=== PATIENT | female | born 1995 | race Two or more races ===

== ENCOUNTER 2020-05-30 21:30 | Emergency (ER) | payer OTHER ==
[~2020-05-30] VITALS: Ht 149.9 cm; Wt 53.5 kg
[2020-05-30] MEDS ORDERED: PRENATABS FA T1 EACH (21:43)
== END 2020-05-31 04:20 ==
LOC: ER 21:30
DX: O26.891 Other specified pregnancy related conditions, first trimester (principal); M25.552 Pain in left hip; R10.84 Generalized abdominal pain; Z03.818 Encounter for observation for suspected exposure to other biological agents ruled out; Z34.01 Encounter for supervision of normal first pregnancy, first trimester

== ENCOUNTER → 2020-07-08 | Outpatient (CLI) | payer OTHER ==
[~2020-07-08] MED LIST: PRENATABS FA T1 EACH
== END | disposition home or self-care (01) ==
LOC: PRENATAL 11:00
PROVIDERS: ATTEND Obstetrics & Gynecology Maternal & Fetal Medicine
DX: O34.81 Maternal care for other abnormalities of pelvic organs, first trimester (principal); O36.80X1 Pregnancy with inconclusive fetal viability, fetus 1; Z36.89 Encounter for other specified antenatal screening; Z3A.12 12 weeks gestation of pregnancy

== ENCOUNTER 2020-08-01 12:25 | Inpatient (IN) | payer OTHER ==
[~2020-08-01] VITALS: Ht 149.9 cm; Wt 57.2 kg
[2020-08-02] MEDS ORDERED: AMPHETAMINE SAL20 M1 (07:54)
[2020-08-02] MEDS ORDERED: FAMOTIDINE20 MG (07:55)
[2020-08-03] MEDS ORDERED: NAPR500T14 PO (08:59)
== END 2020-08-03 10:43 | disposition home or self-care (01) | DRG 819 ==
LOC: CIR.AMB 12:25 → OB/GYN 19:18
PROVIDERS: ADMIT Obstetrics & Gynecology; ATTEND Obstetrics & Gynecology
PROC: 0UB10ZZ Excision of Left Ovary, Open Approach (ICD-10-PCS; principal; 2020-08-01 13:45)
DX: O34.82 Maternal care for other abnormalities of pelvic organs, second trimester (principal); D39.12 Neoplasm of uncertain behavior of left ovary; Z3A.15 15 weeks gestation of pregnancy; Z20.822 Contact with and (suspected) exposure to COVID-19

== ENCOUNTER → 2020-09-09 | Outpatient (CLI) | payer OTHER ==
[~2020-09-09] MED LIST changes: +AMPHETAMINE SAL20 M1; +FAMOTIDINE20 MG; +NAPR500T14 PO
== END | disposition home or self-care (01) ==
LOC: PRENATAL 15:00
PROVIDERS: ATTEND Obstetrics & Gynecology Maternal & Fetal Medicine
DX: O35.0XX1 Maternal care for (suspected) central nervous system malformation in fetus, fetus 1 (principal); O35.3XX1 Maternal care for (suspected) damage to fetus from viral disease in mother, fetus 1; O98.512 Other viral diseases complicating pregnancy, second trimester; O34.82 Maternal care for other abnormalities of pelvic organs, second trimester; Z36.89 Encounter for other specified antenatal screening; Z3A.20 20 weeks gestation of pregnancy

== ENCOUNTER 2021-01-15 18:28 | Inpatient (IN) | payer OTHER ==
[~2021-01-15] VITALS: Ht 149.9 cm; Wt 3.2 kg
[2021-01-15] MEDS ORDERED: IRON325 MG PO (19:14)
[2021-01-15] MEDS ORDERED: ACYCLOVIR5 GM (19:15)
[2021-01-16] MEDS ORDERED: VALACYCLOVIR500 MG (11:26)
[2021-01-16] MEDS ORDERED: NAPROXEN500 MG (11:27)
[2021-01-16] MEDS ORDERED: FAMOTIDINE20 MG (11:27)
[2021-01-16] MEDS ORDERED: AMPHETAMINE SAL20 MG (11:27)
[2021-01-19] MEDS ORDERED: Tylenol #3 PO (08:53)
== END 2021-01-19 12:41 | disposition home or self-care (01) | DRG 788 ==
LOC: LDR 18:28 → OB/GYN 18:28
PROVIDERS: ADMIT Obstetrics & Gynecology; ATTEND Obstetrics & Gynecology
PROC: 3E0P7VZ Introduction of Hormone into Female Reproductive, Via Natural or Artificial Opening (ICD-10-PCS; 2021-01-15)
PROC: 3E033VJ Introduction of Other Hormone into Peripheral Vein, Percutaneous Approach (ICD-10-PCS; 2021-01-15)
PROC: 4A1HXFZ Monitoring of Products of Conception, Cardiac Rhythm, External Approach (ICD-10-PCS; 2021-01-15)
PROC: 10907ZC Drainage of Amniotic Fluid, Therapeutic from Products of Conception, Via Natural or Artificial Opening (ICD-10-PCS; 2021-01-16)
PROC: 10D00Z1 Extraction of Products of Conception, Low, Open Approach (ICD-10-PCS; principal; 2021-01-16 21:00)
DX: O76 Abnormality in fetal heart rate and rhythm complicating labor and delivery (principal); Z37.0 Single live birth; Z3A.39 39 weeks gestation of pregnancy; Z20.822 Contact with and (suspected) exposure to COVID-19

== ENCOUNTER 2024-04-24 12:14 | Outpatient (CLI) | payer OTHER ==
[~2024-04-24 12:14] MED LIST changes: +ACYCLOVIR5 GM; +AMPHETAMINE SAL20 MG; +IRON325 MG PO; +NAPROXEN500 MG; +Tylenol #3 PO; +VALACYCLOVIR500 MG
== END 2024-04-24 12:17 | disposition home or self-care (01) ==
LOC: PRENATAL 12:14
PROVIDERS: ATTEND Obstetrics & Gynecology Maternal & Fetal Medicine
DX: O44.00 Complete placenta previa NOS or without hemorrhage, unspecified trimester (principal); O34.219 Maternal care for unspecified type scar from previous cesarean delivery; Z14.8 Genetic carrier of other disease; Z3A.21 21 weeks gestation of pregnancy

== ENCOUNTER → 2024-06-02 09:32 | Outpatient (CLI) | payer OTHER | END | disposition home or self-care (01) | LOC: PRENATAL 09:32 | PROVIDERS: ATTEND Obstetrics & Gynecology Maternal & Fetal Medicine | DX: O26.849 Uterine size-date discrepancy, unspecified trimester (principal); O36.8199 Decreased fetal movements, unspecified trimester, other fetus; O36.5990 Maternal care for other known or suspected poor fetal growth, unspecified trimester, not applicable or unspecified; Z3A.26 26 weeks gestation of pregnancy ==

== ENCOUNTER → 2024-06-28 07:39 | Outpatient (CLI) | payer OTHER | END | disposition home or self-care (01) | LOC: PRENATAL 07:39 | PROVIDERS: ATTEND Obstetrics & Gynecology Maternal & Fetal Medicine | DX: O26.849 Uterine size-date discrepancy, unspecified trimester (principal); O36.8199 Decreased fetal movements, unspecified trimester, other fetus; O36.5990 Maternal care for other known or suspected poor fetal growth, unspecified trimester, not applicable or unspecified; Z3A.30 30 weeks gestation of pregnancy ==

== ENCOUNTER 2024-07-18 10:22 | Outpatient (CLI) | payer OTHER | END 2024-07-18 10:25 | disposition home or self-care (01) | LOC: PRENATAL 10:22 | PROVIDERS: ATTEND Obstetrics & Gynecology Maternal & Fetal Medicine | DX: O26.849 Uterine size-date discrepancy, unspecified trimester (principal); O36.8199 Decreased fetal movements, unspecified trimester, other fetus; O36.5990 Maternal care for other known or suspected poor fetal growth, unspecified trimester, not applicable or unspecified ==